=== PATIENT | female | born 1970 | race African-American/Black ===

== ENCOUNTER 2017-06-21 09:08 | Emergency (ER) | payer OTHER ==
[~2017-06-21] VITALS: Ht 154.9 cm; Wt 50.8 kg
[2017-06-21 09:52] LABS: PLATELET COUNT 197 K/uL (152-353)
[2017-06-21 09:59] LABS: POTASSIUM 3.4 mmol/L (3.6-5.2); SODIUM 133 mmol/L (136-145)
[2017-06-21 11:00] VITALS: BP 98/58; TEMP 99
== END 2017-06-21 11:02 | disposition home or self-care (01) ==
LOC: ED 09:08
DX: J02.0 Streptococcal pharyngitis (principal)
CPT/HCPCS: 36415; 80053; 81000; 85027; 87804; 87880; 96372; 99283; J0696